=== PATIENT | female | born 1940 | race Caucasian/White ===

== ENCOUNTER 2016-11-28 14:32 | Outpatient (CLI) | payer MEDICARE, OTHER ==
--- NOTE | 2016-11-30 14:48 | DEXA Report ---
DEXA SCAN: 11/28/2016 CLINICAL INDICATION: Postmenopausal. TECHNIQUE: Dual energy x-ray absorptiometry (DXA) was performed on a Phloronol system. Regions measured are the AP spine, femoral neck, and, if needed, forearm. COMPARISON: None. In accordance with the International Society for Clinical Densitometry (ISCD) guidelines, data from previous exams may be reanalyzed using current recommendations and techniques. This is done to allow a more accurate basis for comparison with the current study. FINDINGS The data for the lumbar spine is as follows: REGION BMD (g/cm/cm) T-SCORE Z-SCORE L1 0.891 -2.0 0.1 L2 0.931 -2.2 -0.2 L3 1.065 -1.1 1.0 L4 1.013 -1.6 0.5 TOTAL 0.981 -1.7 0.4 NOTE: All evaluable vertebrae are used for classification. The data for the hip is as follows: REGION BMD (g/cm/cm) T-SCORE Z-SCORE Neck 0.812 -1.6 0.5 TOTAL 0.836 -1.4 0.6 NOTE: The femoral neck or total proximal femur, whichever is lowest, is used for classification. IMPRESSION: THE WHO CLASSIFICATION BASED ON THE INTERNATIONAL REFERENCE STANDARD IS OSTEOPENIA. THE FRACTURE RISK IS INCREASED. RECOMMENDATION: Patients with diagnosis of osteoporosis or osteopenia should have regular bone mineral density assessment. For those eligible for Medicare, routine testing is allowed once every 2 years. Testing frequency can be increased for patients who have rapidly progressing disease or for those who are receiving medical therapy to restore bone mass. COMMENT: World Health Organization (WHO) definitions for osteoporosis and osteopenia: NORMAL BMD: T-score at -1.0 or higher, fracture risk is low. OSTEOPENIA BMD: T-score between -1.0 and -2.5, fracture risk is increased. OSTEOPOROSIS BMD: T-score at -2.5 or lower, fracture risk high. National Osteoporosis Foundation recommends: 1. Obtain adequate dietary calcium (at least 1200 mg per day) and vitamin D (400 -800 international units per day). 2. Participate, as appropriate, in regular weightbearing and muscle- strengthening exercise. 3. Avoid tobacco use and reduce alcohol and caffeine intake. 4. For more detailed information see the website at www.NOF.org. MTDD
== END 2016-11-28 14:33 | disposition home or self-care (01) ==
LOC: DI 14:32
PROVIDERS: ATTEND Internal Medicine
DX: M85.89 Other specified disorders of bone density and structure, multiple sites (principal)
CPT/HCPCS: 77080

== ENCOUNTER 2016-11-28 14:34 | Outpatient (CLI) | payer MEDICARE, OTHER ==
--- NOTE | 2016-11-29 19:04 | Mammography Report ---
DIGITAL SCREENING MAMMOGRAM: 11/28/2016 CLINICAL INDICATION: A 75-year-old with history of bilateral implants, nulliparous patient for fern jay. COMPARISON: 09/2013, 12/2009. TECHNIQUE: Routine CC and MLO projections were obtained of the breasts as well as bilateral implant displaced views. FINDINGS: The breasts again demonstrate heterogeneously dense fibroglandular parenchyma bilaterally. Bilateral subglandular silicone implants are stable. No suspicious masses, clustered microcalcific ations, or regions of architectural distortion are identified. IMPRESSION: BENIGN FINDINGS. RECOMMENDATION: Routine annual screening unless otherwise clinically indicated. BI-RADS category 2, benign findings. STANDARD QUALIFYING STATEMENTS 1. This examination was reviewed with the aid of Computer-Aided Detection (CAD). 2. A negative or benign imaging report should not delay biopsy if clinically suspicious findings are present. Consider surgical consultation if warranted. More than 5% of cancers are not identified by i maging. 3. Dense breasts may obscure an underlying neoplasm. JOB #: [id number] EXT JOB #:[id number]
== END 2016-11-28 14:35 | disposition home or self-care (01) ==
LOC: DI 14:34
PROVIDERS: ATTEND Internal Medicine
DX: Z12.31 Encounter for screening mammogram for malignant neoplasm of breast (principal); Z98.82 Breast implant status
CPT/HCPCS: 77067

== ENCOUNTER 2017-03-23 13:38 | Outpatient (CLI) | payer MEDICARE, OTHER ==
--- NOTE | 2017-03-23 18:29 | XRAY Report ---
LEFT HIP AND PELVIS: 03/23/2017 CLINICAL INDICATION: Left hip discomfort. FINDINGS: Frontal view of the hips and pelvis and frogleg lateral view of the left hip demonstrate mild osteoarthritis. There is no evidence of acute fracture or dislocation. Surgical clips are noted in the pelvis. A bone island is seen in the left iliac crest, stable from CT of 11/07/2007. IMPRESSION: MILD OSTEOARTHRITIS. TD: 03/23/2017 18:27
== END 2017-03-23 13:39 | disposition home or self-care (01) ==
LOC: DI 13:38
PROVIDERS: ATTEND Internal Medicine
DX: M16.12 Unilateral primary osteoarthritis, left hip (principal)

== ENCOUNTER 2017-09-22 17:11 | Emergency (ER) | payer MEDICARE, OTHER ==
[2017-09-22 17:34] VITALS: BP 191/91
[2017-09-22] MEDS ORDERED: IBUPROFEN 600 MG TABLET PO STA (18:00)
--- NOTE | 2017-09-22 18:13 | ED Physician Documentation ---
PD HPI Fall - Stated complaint Stated Complaint: FALL OFF LADDER/RT SHOULDER PX - Chief complaint Chief Complaint: Ext Problem - History obtained from History obtained from: Patient - History of Present Illness Mechanism of injury: Slipped Fall distance: Less than 5ft Where injury occurred: Home Timing - onset: How many minutes ago (30) Injury(ies) location: Right Upper Extremity Worsens with: Movement, Palpation Similar symptoms before: Has not had sx before - Additional information Additional information: The patient is a 76-year-old female who fell about 2 feet off a ladder less than one hour prior to arrival, impacting her right shoulder on hard dirt. She is left-hand dominant. She denies any other injuries. Review of Systems Constitutional: denies: Fever Ears: denies: Tinnitus/ringing Nose: denies: Congestion Cardiac: denies: Chest pain / pressure Respiratory: denies: Dyspnea, Cough GI: denies: Abdominal Pain, Nausea, Vomiting : denies: Dysuria Skin: denies: Abrasion (s), Laceration (s) Musculoskeletal: reports: Joint pain (right shoulder.). 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 - Present Medications Home Medications: Ambulatory Orders Medication Instructions Recorded Confirmed Latanoprost 0.005% Ophth Drops 1 drops OPTH QPM 11/18/14 11/18/14 [Xalatan Ophth Drops] Multivitamin [Multi-Vitamin Daily] 1 each PO 11/18/14 11/18/14 - Allergies Allergies/Adverse Reactions: Allergies Allergy/AdvReac Type Severity Reaction Status Date / Time No Known Drug Allergies Allergy Verified 09/22/17 17:33 PD ED PE NORMAL - Vitals Vital signs reviewed: Yes (Initially hypertensive.) - General General: Alert and oriented X 3, Well developed/nourished - HEENT HEENT: Atraumatic - Neck Neck: No bony TTP, Other (Full cervical range of motion, without tenderness.) - Cardiac Cardiac: RRR - Respiratory Respiratory: No respiratory distress, Clear bilaterally, Other (No chest wall tenderness to palpation.) - Abdomen Abdomen: Soft, Non tender - Back Back: No spinal TTP - Derm Derm: No rash - Extremities Extremities: Other (There is tenderness to palpation of the right shoulder at the proximal humerus. She has decreased range of motion at the shoulder secondary to pain. There is no break in the integument. Distal neurovascular is intact. There is no tenderness to palpation along the clavicle, scapula, or the right elbow or forearm.) - Neuro Neuro: Alert and oriented X 3, No motor deficit, No sensory deficit Results - Vitals Vitals: Oxygen O2 Source Room air - Rads (name of study) right shoulder Radiology: Prelim report reviewed, EMP read contemporaneously, See rad report ( Comminuted proximal humeral fracture involving the surgical neck and greater tuberosity.) PD MEDICAL DECISION MAKING - ED course Complexity details: reviewed results, re-evaluated patient, considered differential, d/w patient, d/w family ED course: The patient's presentation is significant for right proximal humerus fracture caused by falling onto her right shoulder. No other injuries are identified on physical examination. Treatment in the emergency department included administration of ibuprofen 600 mg orally, and application of a right arm sling. I discussed with her the expected course of injury, symptomatic treatment and outpatient follow-up, as well as potentially worrisome signs or symptoms that should prompt reevaluation in the emergency department. - Sepsis Event Vital Signs: Oxygen O2 Source Room air Departure - Departure Disposition: 01 Home, Self Care Clinical Impression: Fracture of proximal humerus Qualifiers: Encounter type: initial encounter Fracture type: closed Fracture morphology: other fracture Fracture alignment: nondisplaced Laterality: right Qualified Code (s): S42.294A - Other nondisplaced fracture of upper end of right humerus, initial encounter for closed fracture Condition: Stable Instructions: ED Fx Shoulder Follow-Up: Abimbola Arriaza MD [Primary Care Provider] - [facility] [Provider Group] Comments: Wear the arm sling for comfort. Apply ice pack to your right shoulder intermittently for the next 3 days. You can use acetaminophen or ibuprofen as needed for discomfort. Follow up with your primary physician within 2 weeks. Call to schedule an appointment. Return to the emergency department if you develop markedly increasing pain, or otherwise worsening symptoms. Discharge Date/Time: 09/22/17 18:35
--- NOTE | 2017-09-22 18:19 | XRAY Report ---
Procedure Date: 09/22/2017 Accession Number: [id number] / [id number] Procedure: XR - Shoulder 3 View RT CPT Code: FULL RESULT: EXAM: RIGHT SHOULDER RADIOGRAPHY EXAM DATE: 09/22/2017 05:46 PM. CLINICAL HISTORY: Injury. COMPARISON: None. TECHNIQUE: 3 views. FINDINGS: Bones: Comminuted mildly displaced and impacted multipart fracture of the proximal humerus. There is a minimally impacted and angulated fracture through the surgical neck. Additional mildly displaced fracture through the greater tuberosity. Joints: No dislocation/subluxation at the acromioclavicular or glenohumeral joints. Mild osteophytic spurring at the acromioclavicular joint. Soft tissues: Visualized hemithorax is unremarkable. IMPRESSION: Comminuted proximal humeral fracture involving the surgical neck and greater tuberosity. RADIA
== END 2017-09-22 18:35 | disposition home or self-care (01) ==
LOC: ED 17:11
DX: S42.254A Nondisplaced fracture of greater tuberosity of right humerus, initial encounter for closed fracture (principal); W11.XXXA Fall on and from ladder, initial encounter; Y92.009 Unspecified place in unspecified non-institutional (private) residence as the place of occurrence of the external cause
CPT/HCPCS: 73030; 99282; 99283; A9270

== ENCOUNTER 2018-09-18 18:50 | Outpatient (CLI) | payer MEDICARE, OTHER ==
--- NOTE | 2018-09-18 20:16 | Ultrasound Report ---
Reason: R LEG PAIN, POPLITEAL SWELLING Procedure Date: 09/18/2018 Accession Number: [id number] / [id number] Procedure: US - Duplex Ext Veins Right CPT Code: FULL RESULT: EXAM: RIGHT LOWER EXTREMITY VENOUS ULTRASOUND EXAM DATE: 09/18/2018 07:26 PM. CLINICAL HISTORY: Right leg pain with popliteal swelling. COMPARISON: None. TECHNIQUE: Real-time sonographic vascular imaging was performed by the principal secretary through the lower extremity utilizing both color-flow and Doppler spectral analysis. Multiple passenger relations representative static images were saved for review. FINDINGS: Common Femoral Vein (CFV): Normal. CFV-GSV Junction: Normal. Profunda Femoral Vein (PFV): Normal. Femoral Vein (FV) Prox: Normal. Femoral Vein (FV) Mid: Normal. Femoral Vein (FV) Dist: Normal. Popliteal Vein: Normal. Posterior Tibial Veins: Normal. Peroneal Veins: Normal. Contralateral Side CFV: Normal. Other: Prepatellar fluid collection 3.7 x 0.7 x 1 cm. IMPRESSION: 1. No evidence for deep venous thrombosis. 2. Prepatellar fluid collection, likely bursal fluid. RADIA The call report notification system was initiated by Dr. Italo Hughes at 08:15 PM on 09/18/2018. ADDENDUM: 09/18/18 20:21 The above call report findings were discussed with Dr Abimbola Arriaza by Dr. Italo Hughes at 08:21 PM on 09/18/2018.
== END 2018-09-18 18:51 | disposition home or self-care (01) ==
LOC: DI 18:50
PROVIDERS: ATTEND Internal Medicine
DX: M79.604 Pain in right leg (principal); M71.21 Synovial cyst of popliteal space [Baker], right knee

== ENCOUNTER 2019-03-26 14:24 | Outpatient (CLI) | payer MEDICARE, OTHER ==
--- NOTE | 2019-03-26 15:03 | XRAY Report ---
Reason: COUGH Procedure Date: 03/26/2019 Accession Number: [id number] / [id number] Procedure: XR - Chest 2 View X-Ray CPT Code: 09519 Final Report FULL RESULT: EXAM: CHEST RADIOGRAPHY EXAM DATE: 03/26/2019 02:29 PM. CLINICAL HISTORY: COUGH. COMPARISON: None. TECHNIQUE: 2 views. FINDINGS: Lungs/Pleura: Left lower lobe infiltrate and small effusion. Right apical pleural thickening. Mediastinum: Heart and mediastinal contours are unremarkable. Other: Bilateral breast implants. IMPRESSION: Left lower lobe infiltrate and small effusion RADIA The call report notification system was initiated by Dr. Keiry Urrutia at 03:00 PM on 03/26/2019. The above call report findings were discussed with Dr Abimbola Arriaza by Dr. Keiry Urrutia at 03:02 PM on 03/26/2019.
== END 2019-03-26 14:25 | disposition home or self-care (01) ==
LOC: DI 14:24
PROVIDERS: ATTEND Internal Medicine
DX: R91.8 Other nonspecific abnormal finding of lung field (principal); J90 Pleural effusion, not elsewhere classified
CPT/HCPCS: 71046

== ENCOUNTER 2019-05-03 13:19 | Outpatient (CLI) | payer MEDICARE, OTHER ==
--- NOTE | 2019-05-03 15:47 | XRAY Report ---
Reason: COUGH Procedure Date: 05/03/2019 Accession Number: [id number] / [id number] Procedure: XR - Chest 2 View X-Ray CPT Code: 22590 Final Report FULL RESULT: EXAM: CHEST RADIOGRAPHY EXAM DATE: 05/03/2019 01:35 PM. CLINICAL HISTORY: Cough. COMPARISON: CHEST 2 VIEW 03/26/2019 2:29 PM. TECHNIQUE: 2 views. FINDINGS: Interval worsening of moderate volume of consolidation and pleural fluid at the left lung base. Right lung appears clear. Heart size upper limits of normal and stable. Moderately heavy capsular calcification of bilateral breast implants. IMPRESSION: Interval worsening of consolidation and pleural fluid left lung base. RADIA
== END 2019-05-03 13:20 | disposition home or self-care (01) ==
LOC: DI 13:19
PROVIDERS: ATTEND Internal Medicine
DX: R91.8 Other nonspecific abnormal finding of lung field (principal)
CPT/HCPCS: 71046

== ENCOUNTER 2019-05-13 10:54 | Outpatient (CLI) | payer MEDICARE, OTHER ==
[2019-05-13 11:29] LABS: CREATININE 0.7 mg/dL (0.4-1.0)
[2019-05-13] MEDS ORDERED: IOVERSOL 320 100 ML VIAL IVP ONE ×2 (11:39→14:57)
--- NOTE | 2019-05-13 13:34 | CT Report ---
Reason: PLUERAL EFFUSION, ABN FINDINGS Procedure Date: 05/13/2019 Accession Number: [id number] / [id number] Procedure: CT - CHEST W CPT Code: Final Report FULL RESULT: EXAM: CT CHEST EXAM DATE: 05/13/2019 12:28 PM. CLINICAL HISTORY: Pleural effusion. Abnormal chest radiograph. COMPARISONS: CHEST 2 VIEW 05/03/2019 1:24 PM CHEST 2 VIEW 03/26/2019 2:29 PM. TECHNIQUE: Routine helical CT imaging was performed through the chest. IV contrast: 80 cc of Optiray 320. Reconstructions: Coronal and sagittal. In accordance with CT protocol optimization, one or more of the following dose reduction techniques were utilized for this exam: automated exposure control, adjustment of mA and/or KV based on patient size, or use of iterative reconstructive technique. FINDINGS: Lungs/Pleura: Small to moderate sized left pleural effusion. There is an irregularly shaped mass within the anterior aspect of the left lower lobe and along the major fissure at the left lung. The overall size of the mass is approximately 12.6 cm superior to inferior by 3 cm AP by 2.8 cm medial to lateral. There is an approximately 1.9 x 2.3 x 0.6 cm focus of subpleural tissue at the posterior superior aspect of the left upper lobe. There is an approximately 2.1 x 0.8 x 0.7 cm focus of tissue at the posterior medial aspect of the left upper lobe which extends inferiorly into the major fissure of the left lung. No pneumothorax. Mild diffuse bronchiectasis. There is an approximately 5.4 x 2 x 1 cm area of pleural or subpleural soft tissue at the right lung apex. Mediastinum: Normal. No adenopathy or masses. The heart and great vessels are normal. Bones: Unremarkable. Visualized Abdomen: There is a calcification at the right upper abdominal quadrant which is partially imaged, and may represent a gallstone. Other: Bilateral breast implants are present which appear ruptured. Calcified bilateral breast implant capsules are present. IMPRESSION: 1. Irregularly-shaped, approximately 12.6 x 3 x 2.8 cm mass within the anterior aspect of the left lower lobe and extending along the major fissure of the left lung which is most concerning for a neoplasm. There were also small foci of subpleural soft tissue at the posterior superior aspect of left upper lobe and a small focus of tissue at the posterior medial aspect of the left upper lobe which extends inferiorly to the major fissure of the left lung which may also represent neoplasm. 2. Small to moderate-sized left toe fusion. 3. A 5.4 x 2 x 1 cm area of pleural or subpleural soft tissue at the right lung apex which may represent pleural thickening or parenchymal scar. Neoplasm cannot be totally excluded. Recommend follow-up imaging. 4. Bilateral breast implants which appear ruptured. Calcified bilateral breast implant capsules suggestive of capsular contracture. RADIA The call report notification system was initiated by Dr. Дмитрий Navarro at 01:28 PM on 05/13/2019. The above call report findings were discussed with Abimbola Arriaza by Dr. Дмитрий Navarro at 01:32 PM on 05/13/2019.
== END 2019-05-13 10:55 | disposition home or self-care (01) ==
LOC: DI 10:54
PROVIDERS: ATTEND Internal Medicine
DX: J90 Pleural effusion, not elsewhere classified (principal); R91.8 Other nonspecific abnormal finding of lung field; Z98.82 Breast implant status
CPT/HCPCS: 36415; 71260; 82565; Q9967

== ENCOUNTER 2019-06-04 13:46 | Outpatient (CLI) | payer MEDICARE, OTHER ==
[2019-06-04] MEDS ORDERED: GADOBUTROL 7.5 MMOL/7.5 ML VIAL ONE (14:06)
[2019-06-04] MEDS ORDERED: GADOBUTROL 7.5 MMOL/7.5 ML VIAL IVP ONE (14:48)
--- NOTE | 2019-06-04 19:48 | MRI Report ---
Reason: ADENOCA OF LEFT LOWER LUNG Procedure Date: 06/04/2019 Accession Number: [id number] / [id number] Procedure: MRI - Brain W/WO CPT Code: Final Report FULL RESULT: EXAM: MRI BRAIN WITHOUT AND WITH CONTRAST EXAM DATE: 06/04/2019 02:57 PM. CLINICAL HISTORY: Lung cancer, staging, evaluate for brain metastasis. COMPARISON: None. TECHNIQUE: Multiplanar, multisequence T1-weighted and fluid-sensitive MR sequences of the brain were performed before and after administration of intravenous contrast. Sequences optimized for routine evaluation. Other: None. IV Contrast: 5.5 mL Gadavist. FINDINGS: Conspicuous approximately 12 mm lesion of the medial right cerebral hemisphere is present in the region of the posterior right cingulate gyrus. Prominent associated hemosiderin staining. No restricted diffusion. At the upper margin of the lesion there is a curvilinear T1 hyperintensity precontrast. Posteriorly and inferiorly there does appear to be a 3.5 mm focus of nodular enhancement. Tissue volume loss with cystic encephalomalacia may be present. Possible minimal gliosis, but no evidence for vasogenic edema. No other evidence for intracranial hemorrhage or acute infarct. No other evidence of intracranial cystic or solid enhancing nodule or lesion. No hydrocephalus. Mild generalized age-related cerebral volume loss. Negligible white matter T2 hyperintense signal changes, probably from minimal chronic microangiopathy and aging. No evidence for major dural venous sinus thrombus. Previous bilateral lens extractions. No acute sinus or mastoid fluid opacity. No focal pathologic-appearing marrow signal changes in the skull or clivus. Severe hypertrophic degenerative facet arthropathy on the right at C1-C2. IMPRESSION: 1. Probably chronic hemorrhagic lesion in the region of the right posterior cingulate gyrus. Probable cystic encephalomalacia. Minimal enhancement. No accompanying edema. This lesion is nonspecific, but may represent sequelae of previous hemorrhage or hemorrhagic infarct. Chronic deformity associated with a cavernous malformation is less likely but conceivable. Findings are not typical of tumor metastasis but additional MRI follow-up to establish stability is suggested. 2. Mild generalized age-related changes without other evidence of acute intracranial abnormality or other suspicious enhancing intracranial lesion. RADIA
== END 2019-06-04 13:47 | disposition home or self-care (01) ==
LOC: DI 13:46
PROVIDERS: ATTEND Internal Medicine Hematology & Oncology
DX: C34.32 Malignant neoplasm of lower lobe, left bronchus or lung (principal); G93.9 Disorder of brain, unspecified
CPT/HCPCS: 70553; A9585

== ENCOUNTER 2019-08-28 12:18 | Outpatient (CLI) | payer MEDICARE, OTHER ==
[2019-08-28] MEDS ORDERED: IOVERSOL 320 100 ML VIAL IVP ONE ×2 (12:32→13:19)
--- NOTE | 2019-08-28 14:20 | CT Report ---
PROCEDURE: CHEST W INDICATIONS: ADENOCARCINOMA LT LUNG CONTRAST: IV CONTRAST: Optiray 320 ml: 90 PO CONTRAST: *NO PO CONTRAST TECHNIQUE: After the administration of intravenous contrast, 5 mm thick sections acquired from the pulmonary api mirza to the posterior costophrenic angles. 7 mm thick coronal MIP reformats were acquired. For radia tion dose reduction, the following was used: automated exposure control, adjustment of mA and/or kV according to patient size. COMPARISON: None. FINDINGS: Image quality: Excellent. Lungs and pleura: No acute air space opacities. There has been interval reduction in size of the ma sslike lesion immediately adjacent to the left lateral border of the left hilum, projecting inferiorl y with a maximal axial dimension in April of this year of 3.0 cm AP and also 3.0 cm transverse. Mild residual mass remains in this area, best seen centered on series 3 image 35 measuring 1.9 x 1.5 cm. T his appears to represent successful response to intervening therapy. No pleural effusions or pneumoth orax. Central and peripheral airways are patent and normal in caliber. Mediastinum: Heart size is normal. No pericardial effusion. No mediastinal or hilar adenopathy by size criteria. Thoracic aorta and central pulmonary arteries are normal in size. Esophagus is leroy l in caliber. No hiatal hernia. Bones and chest wall: No suspicious bony lesions. No vertebral body compression fractures. No axil campos or supraclavicular adenopathy by size criteria. Thyroid gland appears normal where well seen. B ilateral breast implants showed no meter changes records clerk time. Abdomen: Visualized upper abdominal solid organs appear normal. Upper abdominal bowel loops are nor mal in caliber. IMPRESSION: Significant improvement in a previously present large left lower lung mass, as discussed above. This has diminished from a maximal dimension of 3.0 cm previously 21.9 cm currently. Interval reduction in size of a simple appearing left pleural effusion from moderate in size to now small. Reviewed by: Beto Modi MD on 08/28/2019 2:18 PM PDT Approved by: Beto Modi MD on 08/28/2019 2:18 PM PDT Station ID: [id number]
== END 2019-08-28 12:19 | disposition home or self-care (01) ==
LOC: DI 12:18
PROVIDERS: ATTEND Internal Medicine Hematology & Oncology
DX: C34.92 Malignant neoplasm of unspecified part of left bronchus or lung (principal); J90 Pleural effusion, not elsewhere classified
CPT/HCPCS: 71260; Q9967

== ENCOUNTER 2019-11-25 11:02 | Outpatient (CLI) | payer MEDICARE, OTHER ==
[2019-11-25] MEDS ORDERED: IOVERSOL 320 100 ML VIAL IVP ONE ×2 (11:27→17:26)
[2019-11-25] MEDS ORDERED: IOVERSOL 320 50 ML VIAL ONE (11:27)
[2019-11-25] MEDS ORDERED: IOVERSOL 320 50 ML VIAL PO ONE (17:26)
[2019-11-25 17:35] LABS: ALBUMIN 4.3 g/dL (3.2-5.5); ALBUMIN/GLOBULIN RATIO 1.5 (1.0-2.2); CALCIUM 9.3 mg/dL (8.5-10.3); CREATININE 0.8 mg/dL (0.4-1.0); TOTAL PROTEIN 7.1 g/dL (6.7-8.2)
--- NOTE | 2019-11-25 18:12 | CT Report ---
PROCEDURE: CHEST W INDICATIONS: METASTATIC DISEASE EVAL, LUNG CANCER CONTRAST: IV CONTRAST: Optiray 320 ml: 100 PO CONTRAST: Optiray 320 ml50 TECHNIQUE: After the administration of intravenous contrast, 5 mm thick sections acquired from the pulmonary api mirza to the posterior costophrenic angles. 7 mm thick coronal MIP reformats were acquired. For radia tion dose reduction, the following was used: automated exposure control, adjustment of mA and/or kV according to patient size. COMPARISON: CT chest 08/28/2019, 05/13/2019. FINDINGS: Image quality: Excellent. Lungs and pleura: Multifocal nodular thickening along the left major fissure. Overall stable to slig htly decreased. -Left lower lobe nodular thickening along the major fissure measures 2.1 x 1.4 cm, (4/164), previousl y 2 x 1.4 cm on 08/28/2019 and more remotely 2.9 x 2.9 cm on 05/13/2019. -Additionally the nodular thickening at the more superior portions of the left major fissure demonstr ate continued decrease, (4/125). -Nodule in the inferior left lower lobe measures 1.4 x 1.1 cm, (4/243), previously 1.7 x 1.3 cm, prev iously approximately 2.8 x 2.6 cm. -Small subpleural nodules in the inferior left lung seen on 05/13/2019 are decreased. No acute air space opacities. Pleural apical scarring. Nearly resolved left pleural effusion. No pneu mothorax. Central and peripheral airways are patent and normal in caliber. Mediastinum: Heart size is normal. No pericardial effusion. No mediastinal or hilar adenopathy by size criteria. Thoracic aorta and central pulmonary arteries are normal in size. No central pulmona ry wasn't. Esophagus is normal in caliber. No hiatal hernia. Bones and chest wall: Bilateral implants, unchanged. No suspicious bony lesions. No vertebral body compression fractures. No axillary or supraclavicular adenopathy by size criteria. Small right axil campos lymph nodes are unchanged. Thyroid gland demonstrates a subcentimeter left thyroid nodule. Abdomen: Well-circumscribed hypodensity in the hepatic dome is unchanged and most likely represents a benign cyst. No adrenal nodule. Visualized upper abdominal solid organs appear normal. Upper abdom inal bowel loops are normal in caliber. IMPRESSION: 1. Multifocal left lung pulmonary nodules are stable to decreased in size. 2. No enlarged mediastinal or hilar adenopathy. 3. No aggressive appearing osseous lesion. 4. Nearly resolved left pleural effusion. Reviewed by: Chevy Baldwin MD on 11/25/2019 6:11 PM PDT Approved by: Chevy Baldwin MD on 11/25/2019 6:11 PM PDT Station ID: [id number]
--- NOTE | 2019-11-25 18:20 | CT Report ---
PROCEDURE: Abdomen/Pelvis W INDICATIONS: METASTATIC DISEASE EVAL, LUNG CANCER CONTRAST: IV CONTRAST: Optiray 320 ml: 100 PO CONTRAST: Optiray 320 ml50 TECHNIQUE: After the administration of IV and oral contrast, 5 mm thick sections acquired from the diaphragms to the symphysis. 5 mm thick coronal and sagittal reformats were acquired. For radiation dose reducti on, the following was used: automated exposure control, adjustment of mA and/or kV according to adin ent size. COMPARISON: Same day CT chest. CT chest 05/13/2019. Hip and pelvic radiographs 03/23/2017. FINDINGS: Image quality: Excellent. ABDOMEN: Lung bases: Cc separate dictated CT chest. Solid organs: Liver and spleen are normal in size. Well-circumscribed hepatic hypodensity in the dom e of the liver has the appearance of a benign cyst. Punctate hypodensity in the right peripheral dome also likely a cyst. Gallbladder is not significantly distended. A calcified gallstone measuring 1.1 cm. Biliary system is non dilated. Pancreas enhances normally. No adrenal nodules. Kidneys demons trate normal size and enhancement, without hydronephrosis. Peritoneum and bowel: Bowel loops demonstrate normal wall thickness and caliber. A few colonic diver ticuli. Prominent stool the colon. No free fluid or air. Nodes and vessels: No retroperitoneal or mesenteric adenopathy by size criteria. Aorta and inferior vena cava are normal in size. Miscellaneous: No ventral hernias. PELVIS: Genitourinary: Bladder is decompressed. Miscellaneous: No inguinal hernias or adenopathy. Bones: No aggressive appearing bony lesions. Small sclerotic focus in the right and left ilium and l eft sacrum. These most likely represent bone islands. Iliac wing sclerotic foci are unchanged since 2 018. L4-L5 posterior disc protrusion. DDD. No vertebral body compression fractures. IMPRESSION: 1. No metastatic disease identified below the diaphragm. 2. Sclerotic foci in the iliac bones are unchanged since 2018 and are consistent with bone islands. 3. No enlarged adenopathy. 4. Prominent stool the colon. If clinically indicated PET/CT may be helpful for further evaluation. Reviewed by: Chevy Baldwin MD on 11/25/2019 6:19 PM PDT Approved by: Chevy Baldwin MD on 11/25/2019 6:19 PM PDT Station ID: [id number]
== END 2019-11-25 11:03 | disposition home or self-care (01) ==
LOC: LAB 11:02
PROVIDERS: ATTEND Internal Medicine Hematology & Oncology
DX: C34.92 Malignant neoplasm of unspecified part of left bronchus or lung (principal); J90 Pleural effusion, not elsewhere classified
CPT/HCPCS: 36415; 71260; 74177; 80053; Q9967

== ENCOUNTER 2020-03-20 12:04 | Outpatient (CLI) | payer MEDICARE, OTHER ==
[2020-03-20] MEDS ORDERED: IOVERSOL 320 100 ML VIAL IVP ONE ×2 (13:07→15:00)
[2020-03-20 13:18] LABS: CREATININE 0.7 mg/dL (0.4-1.0)
--- NOTE | 2020-03-20 15:48 | CT Report ---
PROCEDURE: CHEST W INDICATIONS: LT LUNG CA CONTRAST: IV CONTRAST: Optiray 320 ml: 100 PO CONTRAST: *NO PO CONTRAST TECHNIQUE: After the administration of intravenous contrast, 5 mm thick sections acquired from the pulmonary api mirza to the posterior costophrenic angles. 7 mm thick coronal MIP reformats were acquired. For radia tion dose reduction, the following was used: automated exposure control, adjustment of mA and/or kV according to patient size. COMPARISON: 11/25/2019, 08/28/2019. FINDINGS: Image quality: Excellent. No pleural effusion identified. No pneumothorax. Ill-defined scarring and architectural distortion in volving the left lung which are grossly unchanged since 11/25/2019 For example left lower lobe spiculated nodule seen on image 173/4 measures 2.1 x 1.2 cm, previously 2 .1 x 1.4 cm. Additional left lung base nodule measures 1.0 x 1.3 cm, previously 1.4 x 1.1 cm. Ill-def ined subcentimeter nodularity in the right middle lobe is grossly unchanged. Diffuse peribronchial cuffing suggestive of nonspecific bronchitis and/or reactive airways disease. S cattered subsegmental scarring/atelectasis. No acute consolidation. Mediastinum: Heart size is normal. No pericardial effusion. No mediastinal or hilar adenopathy by size criteria. A sending thoracic aorta measures 3.7 cm diameter. Esophagus is normal in caliber. N o hiatal hernia. Bones and chest wall: Incidentally noted bilateral breast prostheses. No suspicious bony lesions. No vertebral body compression fractures. No axillary or supraclavicular adenopathy by size criteria. Thyroid gland negative. Abdomen: Visualized upper abdominal solid organs appear normal. Upper abdominal bowel loops are nor mal in caliber. IMPRESSION: Overall, grossly unchanged examination since 11/25/2019 as detailed above. Reviewed by: Nolberto Riley MD on 03/20/2020 3:47 PM PST Approved by: Nolberto Riley MD on 03/20/2020 3:47 PM PST Station ID: [id number]
== END 2020-03-20 12:05 | disposition home or self-care (01) ==
LOC: DI 12:04
PROVIDERS: ATTEND Internal Medicine Hematology & Oncology
DX: C34.92 Malignant neoplasm of unspecified part of left bronchus or lung (principal); C34.90 Malignant neoplasm of unspecified part of unspecified bronchus or lung
CPT/HCPCS: 36415; 71260; 82565; Q9967

== ENCOUNTER 2020-04-16 14:16 | Outpatient (CLI) | payer MEDICARE, OTHER ==
--- NOTE | 2020-04-16 15:49 | XRAY Report ---
PROCEDURE: Shoulder 3 View LT INDICATIONS: L SHOULDER PAIN TECHNIQUE: 3 views of the shoulder were acquired. COMPARISON: None. FINDINGS: Bones: No acute fractures or dislocations. No suspicious bony lesions. Visualized ribs appear inta ct. Soft tissues: No suspicious soft tissue calcifications. IMPRESSION: No acute osseous abnormality. If there is clinical concern or persistent symptoms, addit ional imaging such as repeat radiographs or advanced imaging (e.g. CT, MRI) may be helpful for furthe r evaluation. Reviewed by: Aldo Jewell MD on 04/16/2020 3:48 PM PST Approved by: Aldo Jewell MD on 04/16/2020 3:48 PM PST Station ID: [id number]
== END 2020-04-16 14:17 | disposition home or self-care (01) ==
LOC: DI 14:16
PROVIDERS: ATTEND Internal Medicine
DX: M25.512 Pain in left shoulder (principal)

== ENCOUNTER 2020-06-18 12:23 | Outpatient (CLI) | payer MEDICARE, OTHER ==
[2020-06-18] MEDS ORDERED: IOPAMIDOL-300 100 ML VIAL ONE (13:03)
[2020-06-18 13:20] LABS: CREATININE 0.8 mg/dL (0.4-1.0)
[2020-06-18] MEDS ORDERED: IOPAMIDOL-300 100 ML VIAL IVP ONE (13:43)
--- NOTE | 2020-06-18 16:24 | CT Report ---
PROCEDURE: CHEST W INDICATIONS: ADENOCARCINOMA OF LT LUNG CONTRAST: IV CONTRAST: Isovue 300 ml: 100 PO CONTRAST: *NO PO CONTRAST TECHNIQUE: After the administration of intravenous contrast, 5 mm thick sections acquired from the pulmonary api mirza to the posterior costophrenic angles. 7 mm thick coronal MIP reformats were acquired. For radia tion dose reduction, the following was used: automated exposure control, adjustment of mA and/or kV according to patient size. COMPARISON: None. FINDINGS: Image quality: Excellent. Lungs and pleura: No acute air space opacities in the lung parenchyma shows a pattern of centrilobul ar emphysema consistent with long-standing smoking history. No pleural effusions or pneumothorax. C entral and peripheral airways are patent and normal in caliber. At the left lower lobe posterolateral to the lower lung vasculature again noted is a ovoid radiodensi ty within the lung measuring up to 1.2 x 2.1 cm. This previously had been measured at the same size o n the comparison 03/20/2020. And very similar in size 11/25/2019. It currently is best seen on series 9 002, image 168. More inferiorly at the left lower lobe just above the diaphragm a second nodule had m easured 1.0 x 1.3 cm and currently measures 1.0 x 1.4 cm, not significantly changed. This currently i s best seen on 900 2/246. Mediastinum: Heart size is normal. No pericardial effusion. No mediastinal or hilar adenopathy by size criteria. Thoracic aorta and central pulmonary arteries are normal in size. Esophagus is leroy l in caliber. No hiatal hernia. Bones and chest wall: No suspicious bony lesions. No vertebral body compression fractures. No axil campos or supraclavicular adenopathy by size criteria. Thyroid gland appears normal where well seen. Bilateral breast implants are peripherally calcified and show no evidence of implant rupture. Abdomen: Visualized upper abdominal solid organs appear normal. Upper abdominal bowel loops are nor mal in caliber. Note is made of a moderate-sized densely calcified gallstone at the gallbladder neck , without evidence of acute cholecystitis or biliary obstruction. IMPRESSION: 1. Centrilobular emphysema and appearance of long-standing smoking history. 2 mildly spiculated left lower lobe lung masses are unchanged from prior imaging as discussed above, measuring 1.2 x 2.1 cm an d 1.0 x 1.4 cm, respectively. No new pulmonary nodule has developed. If clinically warranted nuclear medicine PET/CT scanning could be utilized to further assess these structures if that has not yet bee n obtained. No adenopathy or distant metastatic disease is associated. 2. Densely calcified moderate-sized gallstone at the gallbladder neck, which shows no evidence of sec ondary acute cholecystitis or adjacent biliary obstruction. Reviewed by: Beto Modi MD on 06/18/2020 4:23 PM PDT Approved by: Beto Modi MD on 06/18/2020 4:23 PM PDT Station ID: [id number]
== END 2020-06-18 12:24 | disposition home or self-care (01) ==
LOC: LAB 12:23
PROVIDERS: ATTEND Internal Medicine Hematology & Oncology
DX: C34.92 Malignant neoplasm of unspecified part of left bronchus or lung (principal); J43.2 Centrilobular emphysema; R91.8 Other nonspecific abnormal finding of lung field; K80.20 Calculus of gallbladder without cholecystitis without obstruction
CPT/HCPCS: 36415; 71260; 82565; Q9967

== ENCOUNTER 2020-10-26 12:11 | Outpatient (CLI) | payer MEDICARE, OTHER ==
[2020-10-26] MEDS ORDERED: IOPAMIDOL-300 100 ML VIAL ONE (12:46)
[2020-10-26 12:51] LABS: CREATININE 0.8 mg/dL (0.4-1.0)
[2020-10-26] MEDS ORDERED: IOPAMIDOL-300 100 ML VIAL IVP ONE (14:53)
--- NOTE | 2020-10-26 15:07 | CT Report ---
PROCEDURE: CHEST W INDICATIONS: ADENOCARCINOMA OF LEFT LUNG CONTRAST: IV CONTRAST: Isovue 300 ml: 100 PO CONTRAST: *NO PO CONTRAST TECHNIQUE: After the administration of intravenous contrast, images were acquired from the pulmonary apices to t he posterior costophrenic angles. Multiplanar MIP reformats were acquired. For radiation dose reduc tion, the following was used: automated exposure control, adjustment of mA and/or kV according to pa tient size. COMPARISON: CT chest 06/18/2020, 03/20/2020. FINDINGS: Image quality: Excellent. Lungs and pleura: Mild biapical pleural-parenchymal scarring. An ovoid nodule is again seen in the l eft lung along the major fissure measuring 2.1 x 1.2 cm (image 148 of series 4), which appears unchan ged in size when compared to the CT from 06/18/2020. More inferiorly in the left lower lobe just above the diaphragm there is a 1.0 x 1.3 cm nodule (227/4), which also does not appear significantly change d in size. No new pulmonary nodule. No acute airspace consolidation. No acute air space opacities. N o pleural effusions or pneumothorax. Central and peripheral airways are patent and normal in caliber . Mediastinum: Heart size is normal. No pericardial effusion. No mediastinal or hilar adenopathy by size criteria. Thoracic aorta and central pulmonary arteries are normal in size. Esophagus is leroy l in caliber. No hiatal hernia. Bones and chest wall: No suspicious bony lesions. There is a mild compression deformity of the L1 ve rtebral body that is new when compared to the prior CT from 06/18/2020. There is mild loss of vertebral body height measuring 10-20%. No axillary or supraclavicular adenopathy by size criteria. The thyro id is normal in size. Bilateral breast implants are redemonstrated with intracapsular rupture bilater ally, not significantly changed. No definite extracapsular rupture is seen. Abdomen: A calcification at the gallbladder neck does not appear significantly changed. Visualized u pper abdominal solid organs appear normal. Upper abdominal bowel loops are normal in caliber. IMPRESSION: 1. Previously seen left lower lung nodules do not appear significantly changed when compared to the CTs from 06/18/2020 or 03/20/2020. 2. Mild compression deformity of the L1 vertebral body is new when compared to the CT from 06/18/2020. 3. Cholelithiasis. Reviewed by: Aldo Jewell MD on 10/26/2020 3:05 PM PDT Approved by: Aldo Jewell MD on 10/26/2020 3:05 PM PDT Station ID: [id number]
== END 2020-10-26 12:12 | disposition home or self-care (01) ==
LOC: LAB 12:11
PROVIDERS: ATTEND Internal Medicine Hematology & Oncology
DX: C34.92 Malignant neoplasm of unspecified part of left bronchus or lung (principal); M53.86 Other specified dorsopathies, lumbar region; K80.20 Calculus of gallbladder without cholecystitis without obstruction
CPT/HCPCS: 36415; 71260; 82565; Q9967

== ENCOUNTER 2021-01-29 13:00 | Outpatient (CLI) | payer MEDICARE, OTHER ==
--- NOTE | 2021-01-29 14:26 | XRAY Report ---
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 COMPARISON: CT chest 10/26/2020. Chest radiograph 05/03/2019. FINDINGS: Surgical changes and devices: Bilateral breast implants are present.. Lungs and pleura: No pleural effusions or pneumothorax. Known left-sided pulmonary nodules are not w ell evaluated radiographically. No acute consolidation. Mediastinum: Mediastinal contours are normal. Heart size is normal. Bones and chest wall: No suspicious bony abnormalities. Soft tissues appear unremarkable. IMPRESSION: No acute cardiopulmonary abnormality. Known left-sided pulmonary nodules are not well-vi sualized radiographically. Reviewed by: Aldo Jewell MD on 01/29/2021 2:25 PM PST Approved by: Aldo Jewell MD on 01/29/2021 2:25 PM PST Station ID: [id number]
== END 2021-01-29 13:01 | disposition home or self-care (01) ==
LOC: DI 13:00
PROVIDERS: ATTEND Internal Medicine Hematology & Oncology
DX: C34.92 Malignant neoplasm of unspecified part of left bronchus or lung (principal)

== ENCOUNTER 2021-04-28 12:10 | Outpatient (CLI) | payer MEDICARE, OTHER ==
[2021-04-28 12:32] LABS: BASOPHILS % (AUTO) 0.8 %; EOSINOPHILS # (AUTO) 0.1 10^3/uL (0.0-0.7); EOSINOPHILS % (AUTO) 3.1 %; HCT - HEMATOCRIT 41.9 % (37.0-47.0); HGB - HEMOGLOBIN 13.9 g/dL (12.0-16.0); LYMPHOCYTES # (AUTO) 0.9 10^3/uL (1.5-3.5); LYMPHOCYTES % (AUTO) 24.9 %; MEAN CORPUSCULAR HEMOGLOBIN 30.2 pg (27.0-31.0); MEAN CORPUSCULAR HGB CONC 33.2 g/dL (32.0-36.0); MEAN CORPUSCULAR VOLUME 91.1 fL (81.0-99.0); MEAN PLATELET VOLUME 9.8 fL (7.9-10.8); MONOCYTES # (AUTO) 0.6 10^3/uL (0.0-1.0); MONOCYTES % (AUTO) 15.4 %; NEUTROPHILS % (AUTO) 55.8 %; PLT - PLATELET COUNT 178 10^3/uL (130-450); RED CELL DISTRIBUTION WIDTH 14.6 % (12.0-15.0); WHITE BLOOD COUNT 3.6 x10^3/uL (4.8-10.8)
[2021-04-28] MEDS ORDERED: IOVERSOL 320 50 ML VIAL ONE (12:32)
[2021-04-28] MEDS ORDERED: IOVERSOL 320 100 ML VIAL IVP ONE ×2 (12:32→13:44)
[2021-04-28 12:41] LABS: ALBUMIN 4.5 g/dL (3.2-5.5); BILIRUBIN,TOTAL 0.9 mg/dL (0.2-1.0); CALCIUM 9.5 mg/dL (8.5-10.3); CREATININE 0.8 mg/dL (0.4-1.0); POTASSIUM 3.8 mmol/L (3.5-5.0); TOTAL PROTEIN 6.8 g/dL (6.7-8.2)
[2021-04-28] MEDS ORDERED: IOVERSOL 320 50 ML VIAL PO ONE (13:43)
--- NOTE | 2021-04-28 17:07 | CT Report ---
PROCEDURE: Abdomen/Pelvis W INDICATIONS: LUNG CA CONTRAST: IV CONTRAST: Optiray 320 ml: 90 PO CONTRAST: Optiray 320 ml50 TECHNIQUE: After the administration of oral and intravenous contrast, 5 mm thick sections acquired from the diap hragms to the symphysis. 5 mm thick coronal and sagittal reformats were acquired. For radiation dos e reduction, the following was used: automated exposure control, adjustment of mA and/or kV accordin g to patient size. COMPARISON: CT abdomen and pelvis dated 11/25/2019, CT chest from today FINDINGS: Image quality: Excellent. ABDOMEN: Lung bases: Nodularity in the inferior left major fissure is stable compared to November,. Heart size is normal. Bilateral peripherally calcified breast implants. Solid organs: Liver and spleen are normal in size and enhancement. Gallbladder is again noted to co ntain a calcified gallstone. Biliary system is non dilated. Pancreas enhances normally. No adrenal nodules. Kidneys demonstrate normal size and enhancement, without hydronephrosis. Peritoneum and bowel: Bowel loops demonstrate normal wall thickness and caliber. No free fluid or a ir. Nodes and vessels: No retroperitoneal or mesenteric adenopathy by size criteria. Aorta and inferior vena cava are normal in size. Miscellaneous: No ventral hernias. PELVIS: Genitourinary: Bladder wall thickness is normal. Uterus is surgically absent. Miscellaneous: No inguinal hernias or adenopathy. Bones: No suspicious bony lesions. No acute vertebral body compression fractures. Chronic mild L1 c ompression. Lumbar degenerative change. IMPRESSION: 1. No evidence of metastatic disease in the abdomen and pelvis. 2. Cholelithiasis. 3. Old L1 compression fracture. Comment: Please refer to the separate report on the chest CT findings from the same date. Reviewed by: Sergio Vinson MD on 04/28/2021 5:05 PM PDT Approved by: Sergio Vinson MD on 04/28/2021 5:05 PM PDT Station ID: [id number]
--- NOTE | 2021-04-28 17:16 | CT Report ---
PROCEDURE: CHEST W INDICATIONS: LUNG CA CONTRAST: IV CONTRAST: Optiray 320 ml: 90 PO CONTRAST: Optiray 320 ml50 TECHNIQUE: After the administration of intravenous contrast, 1 mm axial images were acquired from the pulmonary apices through the posterior costophrenic angles. Axial 5 mm soft tissue kernel reconstructions were performed as well as 8 mm axial MIP and coronal and sagittal 5 mm reformations. For radiation dose reduction, the following was used: automated exposure control, adjustment of mA and/or kV according to patient size. COMPARISON: None. FINDINGS: Image quality: Excellent. Lungs and pleura: Nodularity and scarring in the region of the left major fissure appears to possibly be minimally increased in size. On previous image 148/4, by my measurements, it measured approximate ly 1.9 x 1.1 cm. On current image 160/3, it measures approximately 2.2 x 1.3 cm. More inferiorly, nod ularity in the left lung base, just above the diaphragm, does not appear significantly changed in siz e. No acute air space opacities. No pleural effusions or pneumothorax. Central and peripheral airwa ys are patent and normal in caliber. Mediastinum: Heart size is normal. No pericardial effusion. No mediastinal or hilar adenopathy by size criteria. Thoracic aorta and central pulmonary arteries are normal in size. Esophagus is leroy l in caliber. No hiatal hernia. Bones and chest wall: No suspicious bony lesions. No vertebral body compression fractures. No axil campos or supraclavicular adenopathy by size criteria. The thyroid is normal in size and there are no incidental findings.. Bilateral peripherally calcified breast implants. Abdomen: Visualized upper abdominal solid organs appear normal. Upper abdominal bowel loops are nor mal in caliber. IMPRESSION: Question of slight interval increase in size of nodularity along the left major fissure. This may pot entially represent local progressive disease. Comment: PET CT may potentially be helpful. CLINICAL RECOMMENDATION STATEMENTS: In patients <35 years with an ITN detected on CT, MRI, or extrathyroidal ultrasound, the Committee re commends further evaluation with dedicated thyroid ultrasound if the nodule is "e1 cm and has no susp icious imaging features, and if the patient has normal life expectancy. In patients "e35 years with an ITN detected on CT, MRI, or extrathyroidal ultrasound, the Committee r ecommends further evaluation with dedicated thyroid ultrasound if the nodule is "e1.5 cm and has no s uspicious imaging features, and if the patient has normal life expectancy. (ACR, 2014) Reviewed by: Sergio Vinson MD on 04/28/2021 5:15 PM PDT Approved by: Sergio Vinson MD on 04/28/2021 5:15 PM PDT Station ID: [id number]
== END 2021-04-28 12:11 | disposition home or self-care (01) ==
LOC: DI 12:10
PROVIDERS: ATTEND Internal Medicine Hematology & Oncology
DX: C34.92 Malignant neoplasm of unspecified part of left bronchus or lung (principal); R91.8 Other nonspecific abnormal finding of lung field
CPT/HCPCS: 36415; 71260; 74177; 80053; 82378; 85025; Q9967

== ENCOUNTER 2021-08-04 13:38 | Outpatient (CLI) | payer MEDICARE, OTHER ==
--- NOTE | 2021-08-04 16:43 | XRAY Report ---
PROCEDURE: Chest 2 View X-Ray INDICATIONS: EGFR RELATED LUNG CA TECHNIQUE: 2 view(s) of the chest. COMPARISON: CT chest 04/28/2021 FINDINGS: Surgical changes and devices: Bilateral breast implants Lungs and pleura: No pleural effusions or pneumothorax. Lungs are clear. Mediastinum: Mediastinal contours are normal. Heart size is normal. Bones and chest wall: No suspicious bony abnormalities. Soft tissues appear unremarkable. IMPRESSION: No disc bulge, spinal stenosis or foraminal narrowing. Reviewed by: Adriana Griffin MD on 08/04/2021 4:42 PM PDT Approved by: Adriana Griffin MD on 08/04/2021 4:42 PM PDT Station ID: [id number]
== END 2021-08-04 13:39 | disposition home or self-care (01) ==
LOC: DI 13:38
PROVIDERS: ATTEND Internal Medicine Hematology & Oncology
DX: C34.90 Malignant neoplasm of unspecified part of unspecified bronchus or lung (principal)
CPT/HCPCS: 36415; 82378; 85025

== ENCOUNTER 2021-08-04 13:44 | Outpatient (CLI) | payer MEDICARE, OTHER ==
[2021-08-04 14:01] LABS: BASOPHILS % (AUTO) 0.5 %; EOSINOPHILS # (AUTO) 0.1 10^3/uL (0.0-0.7); EOSINOPHILS % (AUTO) 1.7 %; HCT - HEMATOCRIT 41.4 % (37.0-47.0); HGB - HEMOGLOBIN 13.6 g/dL (12.0-16.0); LYMPHOCYTES # (AUTO) 1.2 10^3/uL (1.5-3.5); LYMPHOCYTES % (AUTO) 28.6 %; MEAN CORPUSCULAR HGB CONC 32.9 g/dL (32.0-36.0); MEAN CORPUSCULAR VOLUME 91.2 fL (81.0-99.0); MEAN PLATELET VOLUME 9.5 fL (7.9-10.8); MONOCYTES # (AUTO) 0.6 10^3/uL (0.0-1.0); MONOCYTES % (AUTO) 14.9 %; NEUTROPHILS # (AUTO) 2.2 10^3/uL (1.5-6.6); NEUTROPHILS % (AUTO) 54.3 %; PLT - PLATELET COUNT 185 10^3/uL (130-450); RED BLOOD COUNT 4.54 10^6/uL (4.20-5.40); RED CELL DISTRIBUTION WIDTH 14.7 % (12.0-15.0); WHITE BLOOD COUNT 4.1 x10^3/uL (4.8-10.8)
== END 2021-08-04 13:45 | disposition home or self-care (01) ==
LOC: LAB 13:44
PROVIDERS: ATTEND Internal Medicine Hematology & Oncology
DX: C34.90 Malignant neoplasm of unspecified part of unspecified bronchus or lung (principal)
CPT/HCPCS: 36415; 82378; 85025

== ENCOUNTER 2021-08-18 08:00 | Outpatient (CLI) | payer MEDICARE, OTHER ==
[2021-08-18 16:26] LABS: BILIRUBIN,URINE NEGATIVE (NEGATIVE); GLUCOSE, URINE (UA) NEGATIVE (NEGATIVE); KETONES,URINE (UA) NEGATIVE (NEGATIVE); LEUKOCYTE ESTERASE, URINE NEGATIVE (NEGATIVE); NITRITE,URINE NEGATIVE (NEGATIVE); OCCULT BLOOD,URINE NEGATIVE (NEGATIVE); PROTEIN,URINE NEGATIVE (NEGATIVE); UROBILINOGEN,URINE 0.2 (NORMAL) E.U./dL (NORMAL)
[2021-08-18 16:28] LABS: CLARITY,URINE CLEAR (CLEAR)
[2021-08-18 16:42] LABS: BACTERIA,URINE None Seen /HPF (None Seen); RBC,URINE 0-5 /HPF (0-5); SQUAMOUS EPITHELIAL CELL,UR RARE Squamous (<= Few); WBC,URINE 0-3 /HPF (0-5)
== END 2021-08-18 23:59 | disposition home or self-care (01) ==
LOC: LAB.R 08:00
PROVIDERS: ATTEND Internal Medicine
DX: R05.9 Cough, unspecified (principal); R53.83 Other fatigue; R29.898 Other symptoms and signs involving the musculoskeletal system
CPT/HCPCS: 81001; 87086

== ENCOUNTER 2021-11-12 13:42 | Outpatient (CLI) | payer MEDICARE, OTHER ==
[2021-11-12 14:02] LABS: BASOPHILS % (AUTO) 0.7 %; EOSINOPHILS # (AUTO) 0.1 10^3/uL (0.0-0.7); EOSINOPHILS % (AUTO) 2.1 %; HCT - HEMATOCRIT 42.8 % (37.0-47.0); HGB - HEMOGLOBIN 14.3 g/dL (12.0-16.0); LYMPHOCYTES # (AUTO) 1.1 10^3/uL (1.5-3.5); LYMPHOCYTES % (AUTO) 18.8 %; MEAN CORPUSCULAR HEMOGLOBIN 30.3 pg (27.0-31.0); MEAN CORPUSCULAR HGB CONC 33.4 g/dL (32.0-36.0); MEAN CORPUSCULAR VOLUME 90.7 fL (81.0-99.0); MONOCYTES # (AUTO) 0.9 10^3/uL (0.0-1.0); NEUTROPHILS # (AUTO) 3.6 10^3/uL (1.5-6.6); NEUTROPHILS % (AUTO) 63.2 %; PLT - PLATELET COUNT 220 10^3/uL (130-450); RED BLOOD COUNT 4.72 10^6/uL (4.20-5.40); RED CELL DISTRIBUTION WIDTH 14.6 % (12.0-15.0); WHITE BLOOD COUNT 5.7 x10^3/uL (4.8-10.8)
[2021-11-12 14:10] LABS: ALBUMIN 4.3 g/dL (3.2-5.5); ALBUMIN/GLOBULIN RATIO 1.5 (1.0-2.2); BILIRUBIN,TOTAL 1.1 mg/dL (0.2-1.0); CALCIUM 9.7 mg/dL (8.5-10.3); CREATININE 0.8 mg/dL (0.4-1.0); POTASSIUM 3.6 mmol/L (3.5-5.0); TOTAL PROTEIN 7.1 g/dL (6.7-8.2)
--- NOTE | 2021-11-12 15:57 | CT Report ---
PROCEDURE: CHEST W INDICATIONS: LUNG CA CONTRAST: IV CONTRAST: Optiray 320 ml: 100 PO CONTRAST: *NO PO CONTRAST TECHNIQUE: After the administration of intravenous contrast, 1 mm axial images were acquired from the pulmonary apices through the posterior costophrenic angles. Axial 5 mm soft tissue kernel reconstructions were performed as well as 8 mm axial MIP and coronal and sagittal 5 mm reformations. For radiation dose reduction, the following was used: automated exposure control, adjustment of mA and/or kV according to patient size. COMPARISON: CT chest 04/28/2021 FINDINGS: Image quality: Excellent. Lungs and pleura: Previously identified left lower lobe mass has increased in size currently measurin g 2.4 x 2.1 cm compared to 1.8 x 1.7 cm. There is been interval development of a mild to moderate rig ht pleural effusion. In addition, marked left lower lobe pleural thickening has developed since prior exam. There is no visualized endobronchial lesion. Mediastinum: Heart size is normal. No pericardial effusion. No mediastinal or hilar adenopathy by size criteria. Thoracic aorta and central pulmonary arteries are normal in size. Esophagus is leroy l in caliber. No hiatal hernia. Bones and chest wall: No suspicious bony lesions. No vertebral body compression fractures. No axil capmos or supraclavicular adenopathy by size criteria. The thyroid is normal in size and there are no incidental findings.. Bilateral breast present. Abdomen: Visualized upper abdominal solid organs appear normal. Upper abdominal bowel loops are nor mal in caliber. IMPRESSION: Enlarged left lower lobe mass consistent with prior history of malignancy. In addition, there has bee n development of increased left pleural thickening as well as left effusion. Findings are concerning for disease progression. No adenopathy. CLINICAL RECOMMENDATION STATEMENTS: In patients <35 years with an ITN detected on CT, MRI, or extrathyroidal ultrasound, the Committee re commends further evaluation with dedicated thyroid ultrasound if the nodule is "e1 cm and has no susp icious imaging features, and if the patient has normal life expectancy. In patients "e35 years with an ITN detected on CT, MRI, or extrathyroidal ultrasound, the Committee r ecommends further evaluation with dedicated thyroid ultrasound if the nodule is "e1.5 cm and has no s uspicious imaging features, and if the patient has normal life expectancy. (ACR, 2014) Reviewed by: Adriana Griffin MD on 11/12/2021 3:56 PM PDT Approved by: Adriana Griffin MD on 11/12/2021 3:56 PM PDT Station ID: [id number]
== END 2021-11-12 13:43 | disposition home or self-care (01) ==
LOC: DI 13:42
PROVIDERS: ATTEND Internal Medicine Hematology & Oncology
DX: C34.92 Malignant neoplasm of unspecified part of left bronchus or lung (principal); C34.90 Malignant neoplasm of unspecified part of unspecified bronchus or lung; J90 Pleural effusion, not elsewhere classified; J92.9 Pleural plaque without asbestos
CPT/HCPCS: 36415; 71260; 80053; 82378; 85025; Q9967

== ENCOUNTER 2021-12-04 00:28 | Outpatient (CLI) | payer MEDICARE, OTHER | END 2021-12-04 00:29 | disposition EMS.NT | LOC: EMS 00:28 | DX: I10 Essential (primary) hypertension (principal) ==

== ENCOUNTER 2021-12-15 14:01 | Outpatient (CLI) | payer MEDICARE, OTHER ==
--- NOTE | 2021-12-15 15:38 | XRAY Report ---
PROCEDURE: Chest 2 View X-Ray INDICATIONS: COUGH TECHNIQUE: PA and lateral views of the chest. COMPARISON: Chest CT 11/12/2021. FINDINGS: Moderate to large left pleural effusion is seen with atelectasis of the left lung base. The right lalo g is clear. No pneumothorax. Cardiomediastinal silhouette is partially obscured by the adjacent effus ion, but appears to be within normal limits. Bilateral breast implants are noted. Age-related degener ative changes are seen in the spine. IMPRESSION: Moderate to large left pleural effusion has increased in size when compared to the CT from 11/12/2021. Reviewed by: Aldo Jewell MD on 12/15/2021 3:36 PM PDT Approved by: Aldo Jewell MD on 12/15/2021 3:36 PM PDT Station ID: [id number]
== END 2021-12-15 14:02 | disposition home or self-care (01) ==
LOC: DI.N 14:01
PROVIDERS: ATTEND Nurse Practitioner Adult Health
DX: J90 Pleural effusion, not elsewhere classified (principal)

== ENCOUNTER 2021-12-20 11:36 | Outpatient (CLI) | payer MEDICARE, OTHER ==
[2021-12-20 13:05] LABS: CALCIUM 9.5 mg/dL (8.5-10.3); CREATININE 0.8 mg/dL (0.4-1.0); POTASSIUM 3.5 mmol/L (3.5-5.0)
[2021-12-20 13:13] LABS: PT - PROTHROMBIN TIME 10.9 secs (9.9-12.6)
[2021-12-20 13:20] LABS: PARTIAL THROMBOPLASTIN TIME 26.8 secs (24.9-33.3)
[2021-12-20] MEDS ORDERED: lidocaine 1% 20 ML MDV ONE (13:28)
--- NOTE | 2021-12-20 14:46 | XRAY Report ---
PROCEDURE: Post Thoracentesis 1V CXR INDICATIONS: POST THORACENTESIS TECHNIQUE: One view of the chest was acquired. COMPARISON: 12/15/2021. FINDINGS: Surgical changes and devices: None. Lungs and pleura: There has been significant improvement in the patient's left-sided pleural effusio n status post thoracentesis. I see no evidence for pneumothorax. Heart and mediastinal contours appea r within normal limits. Mild pulmonary venous congestion is present. No acute osseous abnormalities i dentified. There is [id number] patchy left lower lobe atelectasis/consolidation present. IMPRESSION: 1. Marked improvement in the size of the patient's left-sided pleural effusion without evidence for p neumothorax status post thoracentesis. 2. Patchy left lower lobe atelectasis/consolidation. 3. Mild pulmonary venous congestion. Reviewed by: Hansel Ruffin MD on 12/20/2021 2:45 PM PST Approved by: Hansel Ruffin MD on 12/20/2021 2:45 PM PST Station ID: [id number]
[2021-12-20] MEDS ORDERED: lidocaine 1% 20 ML MDV SUBQ ONE (15:27)
--- NOTE | 2021-12-20 15:59 | Ultrasound Report ---
PROCEDURE: Thoracentesis Puncture INDICATIONS: PLEURAL EFFUSION TECHNIQUE: The indications, alternatives, benefits, risks, and complications of the procedure were explained to the patient. Written informed consent was obtained and placed in the chart. The chest was examined sonographically, and an appropriate site was chosen for thoracentesis. The skin was prepared and ridge ped in the usual sterile fashion, and 1% lidocaine was infiltrated from the skin down through the ple ural surface. A 19-gauge catheter-covered needle was then introduced into the pleural space, the cat heter was advanced and the needle was withdrawn, and thereafter pleural fluid was aspirated. The cat heter was then removed and a dressing was applied. COMPARISON: None. FINDINGS: Access site: Left hemithorax. Needle: One-Step centesis catheter with introducer needle. Fluid volume and description: 1000 cc clear straw-colored fluid Fluid sent for diagnostic testin cc Medications: 1% lidocaine for local anaesthesia. Complications: Post procedural chest radiograph is pending to assess for pneumothorax. Of note after the examination patient complained of chest pain at the end of the procedure and was st arted on 2 L of oxygen per minute. Post thoracentesis radiograph shows no evidence for pneumothorax a nd significant decrease in the size of the pleural effusion. Given the patient's chest pain and press ure patient was transferred to the emergency room for further evaluation. IMPRESSION: Successful left-sided ultrasound-guided thoracentesis. Reviewed by: Hansel Ruffin MD on 12/20/2021 3:58 PM PST Approved by: Hansel Ruffin MD on 12/20/2021 3:58 PM PST Station ID: [id number]
== END 2021-12-20 11:37 | disposition home or self-care (01) ==
LOC: DI 11:36
PROVIDERS: ATTEND Nurse Practitioner Adult Health
DX: C34.90 Malignant neoplasm of unspecified part of unspecified bronchus or lung (principal); J91.0 Malignant pleural effusion; R07.9 Chest pain, unspecified; Z79.899 Other long term (current) drug therapy
CPT/HCPCS: 32555; 36415; 80048; 85049; 85610; 85730

== ENCOUNTER 2021-12-20 14:33 | Inpatient (IN) | payer MEDICARE, OTHER ==
--- NOTE | 2021-12-20 15:00 | ED Physician Documentation ---
History of Present Illness - Stated complaint Stated Complaint: CHEST PX POST OP - Chief complaint Chief Complaint: Cardiac - Additonal information Additional information: 81-year-old female checks into the emergency department for evaluation of left- sided chest pain. She did undergo a left-sided thoracentesis just about an hour ago for a large left-sided pleural effusion in the setting of lung cancer. She is not planning on pursuing chemotherapy and has started to be evaluated by palliative care. She reports that she was told she would have some chest pain though did not expect quite this much. With no treatment she reports the pain is subsiding. She is got no fevers. She presents well-appearing without hypoxia. This was a therapeutic thoracentesis secondary to increasing dyspnea Review of Systems Constitutional: denies: Fever, Chills Cardiac: reports: Chest pain / pressure. denies: Palpitations Respiratory: reports: Dyspnea. 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 - Present Medications Home Medications: Ambulatory Orders Medication Instructions Recorded Confirmed Latanoprost 0.005% Ophth Drops 1 drops OPTH QPM 11/18/14 11/18/14 [Xalatan Ophth Drops] Multivitamin [Multi-Vitamin Daily] 1 each PO 11/18/14 11/18/14 - Allergies Allergies/Adverse Reactions: Allergies Allergy/AdvReac Type Severity Reaction Status Date / Time No Known Drug Allergies Allergy Verified 09/22/17 17:33 - Social History Does the pt smoke?: No Smoking Status: Never smoker Does the pt drink ETOH?: No Does the pt have substance abuse?: No - Immunizations Immunizations are current?: Yes - POLST Patient has POLST: No PD ED PE NORMAL - General General: Alert and oriented X 3, No acute distress, Well developed/nourished - HEENT HEENT: Atraumatic, Moist mucous membranes - Cardiac Cardiac: RRR, No murmur - Respiratory Respiratory: No respiratory distress. No: Clear bilaterally (Diminished breath sounds in the left lower lobe of the lung. Mild crackles left side. Room air saturations 98%. Clear right-sided lung sounds) - Abdomen Abdomen: Normal bowel sounds, Soft, Non tender - Back Back: No CVA TTP, No spinal TTP - Derm Derm: Normal color, Warm and dry - Extremities Extremities: No deformity, No tenderness to palpate, Normal ROM s pain - Neuro Neuro: Alert and oriented X 3, billing assistant 2-12 intact Eye Opening: Spontaneous Motor: Obeys Commands Verbal: Oriented GCS Score: 15 Results - Vitals Vitals: Vital Signs - 24 hr 12/20/21 12/20/21 12/20/21 14:38 14:40 15:10 Temperature 36.7 C Heart Rate 76 76 73 Respiratory 16 22 Rate Blood Pressure 147/83 H 155/90 H O2 Saturation 98 97 96 If not protocol : Oxygen Flow, liters/minute 12/20/21 12/20/21 12/20/21 16:30 17:00 18:00 Temperature Heart Rate 83 88 77 Respiratory 14 16 14 Rate Blood Pressure O2 Saturation 97 100 100 If not protocol : Oxygen Flow, liters/minute 12/20/21 12/20/21 12/20/21 18:47 19:25 20:18 Temperature 36.7 C Heart Rate 77 84 78 Respiratory 14 17 16 Rate Blood Pressure 155/90 H 168/92 H 145/79 H O2 Saturation 100 99 99 If not protocol : Oxygen Flow, liters/minute 12/20/21 21:14 Temperature 37.2 C Heart Rate 73 Respiratory 14 Rate Blood Pressure 135/72 H O2 Saturation 100 If not protocol 3 : Oxygen Flow, liters/minute Oxygen O2 Source Nasal cannula - EKG (time done) 1445 Rate: Rate (enter#) (72) Rhythm: NSR Eagle: Normal Intervals: Normal CA. No: Prolonged QT QRS: Low voltage Ischemia: Non specific changes Compare to prior EKG: Unchanged from prior EKG Computer interpretation: Agree with computer - Labs Labs: Laboratory Tests 12/20/21 12/20/21 12/20/21 15:03 15:03 15:03 WBC 5.1 RBC 4.63 Hgb 13.5 Hct 41.0 MCV 88.6 MCH 29.2 MCHC 32.9 RDW 14.9 Plt Count 195 MPV 10.8 Neut # (Auto) 3.3 Lymph # (Auto) 1.0 L Clayton # (Auto) 0.7 Eos # (Auto) 0.0 Baso # (Auto) 0.0 Absolute Nucleated RBC 0.00 Nucleated RBC % 0.0 Sodium 123 L Potassium 3.1 L Chloride 91 L Carbon Dioxide 26 Anion Gap 6.0 BUN 16 Creatinine 0.7 Estimated GFR (MDRD) 80 L Glucose 110 H Calcium 9.2 Troponin I High Sens 8.0 SARS-CoV-2 (PCR) 12/20/21 20:10 WBC RBC Hgb Hct MCV MCH MCHC RDW Plt Count MPV Neut # (Auto) Lymph # (Auto) Clayton # (Auto) Eos # (Auto) Baso # (Auto) Absolute Nucleated RBC Nucleated RBC % Sodium Potassium Chloride Carbon Dioxide Anion Gap BUN Creatinine Estimated GFR (MDRD) Glucose Calcium Troponin I High Sens SARS-CoV-2 (PCR) NOT DETECTED - Rads (name of study) cxr Radiology: Final report received (Interval development of small to moderate sized left pneumothorax.) PD MEDICAL DECISION MAKING - ED course Complexity details: reviewed results, re-evaluated patient, considered differential, d/w patient, d/w family ED course: 81-year-old female Presents to the emergency department for severe chest pain after a therapeutic left-sided thoracentesis. She does have a history of lung cancer for which she is taking oral chemotherapy. She is managed by Dr. Saunders through [facility] oncology clinics. Over the last few months she has developed a pleural effusion that become progressively more symptomatic therefore she had an elective left-sided thoracentesis. On presentation to the emergency department she is alert and well-appearing. She does have some minimal crackles on the left side but no hypoxia. Screening labs show a worsening hyponatremia. She does have a history of being on hydrochlorothiazide and I suspect that this is the source. I did briefly discussed the case with her oncologist Dr. Saunders. At that time he would recommend discontinuing the hydrochlorothiazide and having her labs repeated In a few days to ensure that it is not worsening. However subsequently repeat chest x-ray done about 90 minutes after the procedure does show a left-sided pneumothorax. Given this finding I contacted Dr. Ahumada surgeon on-call who will place a chest tube and the patient will be admitted later when a bed becomes available for further management of this pneumothorax. 2200: I personally reviewed the post chest tube line placement x-ray and I do not see any findings of residual pneumothorax. Patient has been admitted by the surgeon Dr. Daniel further care to be dictated by the surgical team Departure - Departure Disposition: 66 [facility] DC/Xfer Clinical Impression: Pleural effusion, left, Hyponatremia Pneumothorax Qualifiers: Pneumothorax type: postprocedural Qualified Code(s): J95.811 - Postprocedural pneumothorax Lung cancer Qualifiers: Laterality: unspecified laterality Lung location: unspecified part of lung Qualified Code(s): C34.90 - Malignant neoplasm of unspecified part of unspecified bronchus or lung Condition: Serious
[2021-12-20 15:19] LABS: BASOPHILS % (AUTO) 0.8 %; EOSINOPHILS % (AUTO) 0.6 %; HGB - HEMOGLOBIN 13.5 g/dL (12.0-16.0); LYMPHOCYTES % (AUTO) 20.2 %; MEAN CORPUSCULAR HEMOGLOBIN 29.2 pg (27.0-31.0); MEAN CORPUSCULAR HGB CONC 32.9 g/dL (32.0-36.0); MEAN CORPUSCULAR VOLUME 88.6 fL (81.0-99.0); MEAN PLATELET VOLUME 10.8 fL (7.9-10.8); MONOCYTES # (AUTO) 0.7 10^3/uL (0.0-1.0); MONOCYTES % (AUTO) 12.8 %; NEUTROPHILS # (AUTO) 3.3 10^3/uL (1.5-6.6); NEUTROPHILS % (AUTO) 65.2 %; PLT - PLATELET COUNT 195 10^3/uL (130-450); RED BLOOD COUNT 4.63 10^6/uL (4.20-5.40); RED CELL DISTRIBUTION WIDTH 14.9 % (12.0-15.0); WHITE BLOOD COUNT 5.1 x10^3/uL (4.8-10.8)
[2021-12-20 15:31] LABS: CALCIUM 9.2 mg/dL (8.5-10.3); CREATININE 0.7 mg/dL (0.4-1.0); POTASSIUM 3.1 mmol/L (3.5-5.0)
[2021-12-20] MEDS ORDERED: SODIUM CHLORIDE 0.9% 1,000 ML IV STA (15:40)
[2021-12-20] MEDS ORDERED: POTASSIUM CHLORIDE 20 MEQ TABLET PO STA (15:41)
--- NOTE | 2021-12-20 16:35 | XRAY Report ---
PROCEDURE: Chest 1 View X-Ray INDICATIONS: chest pain after thoracentesis TECHNIQUE: One view of the chest was acquired. COMPARISON: 12/20/2021. This film taken at 1539 hours previous film taken at 1347 hours. FINDINGS: Since the prior examination patient has developed a small to moderate sized left pneumothorax. There is continued atelectasis/consolidation at the left lung base. Right lung is clear. Heart and mediastinal contours appear within normal limits. Pulmonary vascularit y is within normal limits for low volumes. IMPRESSION: 1. Interval development of ayuvy-bo-[id number] sized left pneumothorax. 2. This report was called stat to the ER at the at 1630 hours. Reviewed by: Hansel Ruffin MD on 12/20/2021 4:34 PM PST Approved by: Hansel Ruffin MD on 12/20/2021 4:34 PM PST Station ID: [id number]
[2021-12-20] MEDS ORDERED: LIDOCAINE 1%-EPI 1:100000 10 ML MDV SUBQ STA (16:45)
[2021-12-20] MEDS ORDERED: HYDROmorphone 1 MG/ML CARPUJECT IVP STA (17:53)
[2021-12-20] MEDS ORDERED: ceFAZolin 2 GM in SODIUM CHLORIDE 0.9% 100ML 100 ML IV STA (17:54)
[2021-12-20] MEDS ORDERED: MIDAZOLAM 2 MG/2 ML VIAL IVP STA (17:54)
[2021-12-20] MEDS ORDERED: ceFAZolin 2 GM/50 ML 2 GM/50 ML BAG IV STA (18:01)
--- NOTE | 2021-12-20 18:32 | SURGERY HX AND PHYSICAL(T) ---
Surgical History & Physical - Chief Complaint/HPI Chief Complaint: left chest pain History of Present Illness: Patient was diagnosed with left lung cancer and is taking oral chemo. She developed a left pleural effusion for which she underwent a thoracentesis earlier today. She had more chest pain than expected after her procedure and presented to the ED where she was found to have a post procedure pneumothorax. For this, I am consulted. At the time of my exam, the patient complains of pain with deep inspiration only. She was satting well on RA. She states she is hungry and denies any other pain, nausea, vomiting, fevers, chills, or other systemic complaints. - PMH/PSH/Social Hx Does the pt have a hx of MRSA?: No Eyes, Ears, Nose, Throat: Glaucoma Cardiovascular: Hypertension Respiratory: Other (lung cancer (L), pleural effusion (L)) Skin: None Endocrine/Autoimmune: None Gastrointestinal: None Urinary: None Musculoskeletal: Osteoarthritis Psychiatric: None Smoking Status: Never smoker Does the pt drink ETOH?: No Frequency: Weekly Number: 1 Does the pt have substance abuse?: No - Family Hx Family Hx: Unremarkable - Home Meds and Allergies Home Medications: Latanoprost 0.005% Ophth Drops [Xalatan Ophth Drops] 1 drops OPTH QPM 11/18/14 Multivitamin [Multi-Vitamin Daily] 1 each PO 11/18/14 Allergies/Adverse Reactions: Allergies Allergy/AdvReac Type Severity Reaction Status Date / Time No Known Drug Allergies Allergy Verified 09/22/17 17:33 - Review of Systems Constitutional: Other (Complete ROS negative except for HPI, PMH.) - Vital Signs Heart Rate: 77 Blood Pressure: 155/90 Temperature: 36.7 C Respiratory Rate: 14 O2 Saturation: 100 Weight (kg): 49.895 kg Height: 1.63 m - Physical Exam General Appearance: positive: No acute distress, Alert Eyes Bilatera: positive: Normal inspection, PERRL, EOMI ENT: positive: ENT inspection nml Neck: positive: Nml inspection, Thyroid nml Respiratory: positive: Chest non-tender, No respiratory distress, Other (decreased breath sounds in L base). negative: Wheezes, Rales, Rhonchi Cardiovascular: positive: Regular rate & rhythm Peripheral Pulses: positive: 2+ Abdomen: positive: Non-tender. negative: Guarding, Rebound, Mass Back: positive: Nml inspection Extremities: positive: Non-tender Neurologic/Psychiatric: positive: Oriented x3 - Patient Review Patient Review: Problems were reviewed with the patient during this visit. Medications were reviewed with the patient during this visit. Allergies were reviewed this patient during this visit. Pertinent Tests Reviewed: All pertitent test for this patient were reviewed. - Assessment & Plan Assessment and Plan: 81 y/o F with lung cancer, s/p thoracentesis for pleural effusion earlier today, now with post procedure pneumothorax in left lateral chest. - CXR, history, PE consistent with this picture - patient is not in distress. Will give pre-procedure abx, and have offered anxiolysis and pain meds for left chest tube placement. - Plan on emergent CT placement in ED tonight. - Will give regular diet and restart home meds tonight after procedure. Limited beds available, but will work to obtain bed in hospital as soon as possible. - plan to keep CT to suction overnight, repeat CXR in AM. If PTX resolved in AM, will put CT to water seal and repeat CXR. If no recurrent PTX, will remove CT and discharge home.
[2021-12-20] MEDS ORDERED: SODIUM CHLORIDE FLUSH 0.9% 10 ML SYRINGE IVP PRN (18:47)
[2021-12-20] MEDS ORDERED: ONDANSETRON 4 MG/2 ML VIAL IVP PRN (18:47)
[2021-12-20] MEDS ORDERED: MORPHINE 2 MG/ML CARPUJECT IVP PRN (18:47)
[2021-12-20] MEDS ORDERED: ASPIRIN 325 MG TABLET PO ONE (19:55)
--- NOTE | 2021-12-20 20:23 | OPERATIVE REPORT ---
Operative Report - General Procedure Date: 12/20/21 Planned Procedure: left thoracostomy tube placement Pre-Op Diagnosis: left pneumothorax Procedure Performed: left thoracostomy tube placement Post Op Diagnosis: left pneumothorax, left pleural effusion - Procedure Note Primary Surgeon: Dr. Gayathri Daniel Anesthesia Technique: Local Pathology: none Drain/Tube Type: Other (chest tube, 12F, left lateral position) Indications: Patient had thoracentesis today, now has pneumothorax and chest pain. 30% pneumo on my review of imaging. I saw and evaluated the patient. We discussed the r/b/a of chest tube placement including bleeding, infection, damage to surrounding structures, and need for further surgery or procedures. The patient voiced udnerstanding, her questions were answered, and she wished to proceed. The patient signed a consent in her ED room. Findings: left pneumothorax Complications: none - Other Other Information/Narrative: The procedure was performed in the patient's ED room. She was given pre op antibiotics, pain medication, and anxiolysis. A pre procedure timeout was performed. She was then prepped and draped in the usual, sterile fashion. Next 15mL 1%lidocaine with epinephrine was injected into the skin, subcutaneous tissues, and chest wall where the tube would be placed. Then, an #11 scalpel was used to make a 2cm transverse incision at the 5th intercostal space. A hemostat was used to spread the subcutaneous tissues and enter the chest wall. The patient's chest wall could not accomodate a digit for finger sweep. Then a 12F chest tubewas inserted angled supperiorly and posteriorly, to 10cm. The tube was sewn into place, hooked to a [facility] chest tube system, and placed to -20cm H2O. There was a 1+ air leak. The patient tolerated the procedure well, without complication. She remained in the ED at the end of the procedure.
--- NOTE | 2021-12-20 22:38 | XRAY Report ---
PROCEDURE: Chest for Line Placement INDICATIONS: s/p left chest tube TECHNIQUE: One view of the chest was acquired. COMPARISON: Prior chest x-ray from 12/20/2021. FINDINGS: Surgical changes and devices: There is a new left chest tube with the tip extending into the medial left hemithorax in the upper lung zone. Lungs and pleura: There is a small residual left apical pneumothorax, markedly decreased compared to the prior study. There is increased pulmonary edema. Increased confluent left basilar opacities are also demonstrated consistent with atelectasis or consolidation. There is a small to moderate left ple ural effusion. Mediastinum: Mediastinal contours appear unchanged. Heart size is normal. Bones and chest wall: No suspicious bony lesions. Overlying soft tissues appear unremarkable. IMPRESSION: 1. New left pneumothorax with decrease in previously visualized left pneumothorax. There is a small r esidual apical pneumothorax. 2. Increased bony edema. 3. Increased left basilar atelectasis or consolidation with a persistent small to moderate left pleur al effusion. Reviewed by: Isaias Lauren MD on 12/20/2021 10:36 PM PST Approved by: Isaias Lauren MD on 12/20/2021 10:36 PM PST Station ID: [id number]
[2021-12-20] MEDS: ACETAMINOPHEN 325 MG TABLET PO PRN (23:07)
[2021-12-21] MEDS: MORPHINE 2 MG/ML CARPUJECT IVP PRN ×3 (00:06→12:48)
[2021-12-21] MEDS: SODIUM CHLORIDE FLUSH 0.9% 10 ML SYRINGE IVP SCH ×4 (00:06→23:45)
[2021-12-21] MEDS: ACETAMINOPHEN 325 MG TABLET PO PRN (05:10)
[2021-12-21 05:39] LABS: CREATININE 0.9 mg/dL (0.4-1.0); POTASSIUM 3.6 mmol/L (3.5-5.0)
[2021-12-21] MEDS ORDERED: HYDROmorphone 0.5 MG/0.5 ML SYRINGE IVP ONE ×2 (05:39)
[2021-12-21] MEDS ORDERED: LIDOCAINE PATCH 5% TOP PRN (05:53)
--- NOTE | 2021-12-21 07:39 | PROVIDER PROGRESS NOTE ---
Subjective - General Admit Date: 12/20/21 Procedure Date: 12/20/21 Post Op Days: 1 Procedure Performed: left thoracostomy tube placement - Review of Systems Drain Output Description: 125mL serosang fluid - Other Other Information/Narrative: Patient was doing well last night. Early this morning, she was resting and RN noted CT was disconnected. The tube was reconnected and placed to suction. Tube is tidaling but no air leak. After reconnection of the tube, the patient is having increased insertion site pain. At the time of my exam, the patient is breathing without difficulty. Her pain is improved after IV pain medication. Objective - Patient Data Vital Signs: Vital Signs x48h Temp Pulse Resp BP Pulse Ox O2 Flow Rate 12/21/21 04:19 36.8 C 73 16 116/56 L 98 3 Weight: Weight 12/19/21 12/20/21 12/21/21 23:59 23:59 23:59 Weight (kg) 49.895 kg Intake & Output: Intake and Output Totals x24h 12/19/21 12/20/21 12/21/21 23:59 23:59 23:59 Intake Total 50 Output Total 137 125 Balance -87 -125 - Lab Results Lab Results: 12/20/21 15:03 12/21/21 05:00 Other Lab Results: Lab Results x24hrs 12/21/21 12/20/21 12/20/21 Range/Units 05:00 20:10 15:03 WBC (4.8-10.8) x10^3/uL RBC (4.20-5.40) 10^6/uL Hgb (12.0-16.0) g/dL Hct (37.0-47.0) % MCV (81.0-99.0) fL MCH (27.0-31.0) pg MCHC (32.0-36.0) g/dL RDW (12.0-15.0) % Plt Count (130-450) 10^3/uL MPV (7.9-10.8) fL Neut # (Auto) (1.5-6.6) 10^3/uL Lymph # (Auto) (1.5-3.5) 10^3/uL Taliaferro # (Auto) (0.0-1.0) 10^3/uL Eos # (Auto) (0.0-0.7) 10^3/uL Baso # (Auto) (0.0-0.1) 10^3/uL Absolute Nucleated RBC x10^3/uL Nucleated RBC % /100WBC Sodium 125 L (135-145) mmol/L Potassium 3.6 (3.5-5.0) mmol/L Chloride 90 L (101-111) mmol/L Carbon Dioxide 26 (21-32) mmol/L Anion Gap 9.0 (6-13) BUN 21 H (6-20) mg/dL Creatinine 0.9 (0.4-1.0) mg/dL Estimated GFR (MDRD) 60 L (>89) Glucose 111 H (70-100) mg/dL Calcium 9.0 (8.5-10.3) mg/dL Troponin I High Sens 8.0 (2.3-14.8) ng/L SARS-CoV-2 (PCR) NOT DETECTED 12/20/21 12/20/21 Range/Units 15:03 15:03 WBC 5.1 (4.8-10.8) x10^3/uL RBC 4.63 (4.20-5.40) 10^6/uL Hgb 13.5 (12.0-16.0) g/dL Hct 41.0 (37.0-47.0) % MCV 88.6 (81.0-99.0) fL MCH 29.2 (27.0-31.0) pg MCHC 32.9 (32.0-36.0) g/dL RDW 14.9 (12.0-15.0) % Plt Count 195 (130-450) 10^3/uL MPV 10.8 (7.9-10.8) fL Neut # (Auto) 3.3 (1.5-6.6) 10^3/uL Lymph # (Auto) 1.0 L (1.5-3.5) 10^3/uL Taliaferro # (Auto) 0.7 (0.0-1.0) 10^3/uL Eos # (Auto) 0.0 (0.0-0.7) 10^3/uL Baso # (Auto) 0.0 (0.0-0.1) 10^3/uL Absolute Nucleated RBC 0.00 x10^3/uL Nucleated RBC % 0.0 /100WBC Sodium 123 L (135-145) mmol/L Potassium 3.1 L (3.5-5.0) mmol/L Chloride 91 L (101-111) mmol/L Carbon Dioxide 26 (21-32) mmol/L Anion Gap 6.0 (6-13) BUN 16 (6-20) mg/dL Creatinine 0.7 (0.4-1.0) mg/dL Estimated GFR (MDRD) 80 L (>89) Glucose 110 H (70-100) mg/dL Calcium 9.2 (8.5-10.3) mg/dL Troponin I High Sens (2.3-14.8) ng/L SARS-CoV-2 (PCR) - Current Medications Current Medications: Current Medications Generic Name Dose Route Start Last Admin Trade Name Freq PRN Reason Stop Dose Admin Acetaminophen 650 mg 12/20/21 22:43 12/21/21 05:10 Acetaminophen 325 Mg Tablet PO 650 mg Q4HR PRN Administration Mild Pain Morphine Sulfate 2 mg 12/20/21 23:57 12/21/21 04:21 Morphine 2 Mg/Ml Carpuject IVP 2 mg Q2HR PRN Administration Pain 8 to 10 Sodium Chloride 10 ml 12/21/21 01:00 12/21/21 00:06 Sodium Chloride Flush 0.9% 10 Ml Syringe IVP 10 ml 0100,0900,1700 DENEEN Administration Sodium Chloride 10 ml 12/20/21 18:47 12/21/21 04:22 Sodium Chloride Flush 0.9% 10 Ml Syringe IVP 10 ml PRN PRN Administration NEEDED PER PROVIDER ORDERS - Physical Exam Wound/Incisions: positive: Drainage (125mL serosang output from) General Appearance: positive: No acute distress, Alert Respiratory: positive: No respiratory distress, Breath sounds nml, Other (CT to water seal.) Cardiovascular: positive: Regular rate & rhythm Abdomen: positive: Non-tender, No distention Extremities: positive: Non-tender, Full ROM Neurologic/Psychiatric: positive: Oriented x3 Impression/Plan - Problem List Problem List: 81 y/o F with iatrogenic pneumothorax, s/p small bore CT placement. - tube accidentally pulled back with repositioning last night, but appears to remain in the chest on repeat CXR this AM. - I reviewed all the patient's Chest XR images and reports this AM. Most recent CXR reveals PTX is resolved on my review of images this AM. - Plan for repeat CXR at 1100. If no recurrent PTX, plan for removal of tube and likely discharge to home later today. - Plan to restart home medications today.
--- NOTE | 2021-12-21 08:41 | XRAY Report ---
PROCEDURE: Chest 1 View X-Ray INDICATIONS: pneumothorax, s/p CT placement TECHNIQUE: One view of the chest was acquired. COMPARISON: Chest x-ray 12/20/2021 FINDINGS: Surgical changes and devices: Interval left chest tube placement overlying the left lower lobe. Lungs and pleura: There is interval decrease of right pneumothorax with persistent trace apical pneu mothorax.. Consolidative opacity remains present in the left base. Mediastinum: Mediastinal contours appear normal. Heart size is normal. Bones and chest wall: No suspicious bony lesions. Overlying soft tissues demonstrate subcutaneous a nd the seen within the left chest wall. IMPRESSION: Decreased although persistent trace apical left pneumothorax now chest tube. Reviewed by: Adriana Griffin MD on 12/21/2021 8:40 AM PST Approved by: Adriana Griffin MD on 12/21/2021 8:40 AM PST Station ID: [id number]
--- NOTE | 2021-12-21 11:57 | XRAY Report ---
PROCEDURE: Chest 1 View X-Ray INDICATIONS: re eval of PTX TECHNIQUE: One view of the chest was acquired. COMPARISON: None. FINDINGS: Surgical changes and devices: Left chest tube is unchanged. Lungs and pleura: Trace left apical pneumothorax, unchanged. There is overall appearance of increase d pulmonary vascularity. Mediastinum: Mediastinal contours appear normal. Heart size is enlarged. Bones and chest wall: No suspicious bony lesions. Overlying soft tissues appear unremarkable. IMPRESSION: Trace left apical pneumothorax, unchanged. Reviewed by: Adriana Griffin MD on 12/21/2021 11:55 AM PST Approved by: Adriana Griffin MD on 12/21/2021 11:55 AM [facility] Station ID: [id number]
--- NOTE | 2021-12-21 12:20 | PHARMACY PROGRESS NOTE ---
- Best Possible Medication History Admit Date and Time: 12/20/21 1847 Processed by: Pharmacy Medication History completed: Yes Patient Interview: Completed Secondary Source(s): Pharmacy records (Pt isn't a good historian) As the person ultimately responsible for medication therapy, providers are able to order a medication from an existing home medication list in [facility] via the "Reconcile Routine" prior to Confirmation of that medication by senior support analyst. Such practice is discouraged except when the physician, in their clinical judgment, deems that a medical need exists for a medication without regard to previous use.
--- NOTE | 2021-12-21 14:55 | XRAY Report ---
PROCEDURE: Chest 1 View X-Ray INDICATIONS: timed at 1200, ptx follow up TECHNIQUE: One view of the chest was acquired. COMPARISON: None. FINDINGS: Surgical changes and devices: Left-sided chest tube is stable. Bilateral breast implants are stable. Lungs and pleura: No pleural effusions or pneumothorax. Bilateral interstitial prominence stable. Mediastinum: Mediastinal contours appear normal. Heart size is normal. Bones and chest wall: No suspicious bony lesions. Overlying soft tissues appear unremarkable. IMPRESSION: No pneumothorax. Reviewed by: Judy Guadalupe MD, PhD on 12/21/2021 2:54 PM PST Approved by: Judy Guadalupe MD, PhD on 12/21/2021 2:54 PM PST Station ID: [id number]
[2021-12-22] MEDS ORDERED: MULTIVITAMIN W/MINERALS TABLET PO SCH (08:00)
--- NOTE | 2021-12-22 08:15 | Discharge Plan ---
Discharge Plan Problem Reviewed?: Yes Disposition: Home, Self Care Condition: Stable Diet: Regular Activity Restrictions: No Restrictions Shower Restrictions: No Driving Restrictions: No Weight Bearing: Full Weight Instruction Topics: Pneumothorax, Effusion Pleural, Thoracentesis Dc Health Concerns: lung cancer Assessment: pneumothorax resolved Additional Instructions or Follow Up instructions: change dressing on left chest as needed. Keep area covered until Sat AM, then may leave open to room air. Follow-Up Care: [facility] [place] [facility] - Medical No Smoking: If you smoke, Please STOP! Call for help. Follow-up with: Abimbola Arriaza MD [Primary Care Provider] -
--- NOTE | 2021-12-22 08:18 | DISCHARGE SUMMARY ---
"Discharge Summary Admit Date: 12/20/21 Discharge Date: 12/22/21 Discharging Provider: Dr. Gayathri Daniel Primary Care Provider: Becky Code Status: Do Not Attempt Resuscitation Condition at Discharge: Stable Discharge Disposition: 01 Home, Self Care - DIAGNOSES Admission Diagnoses: iatrogenic pneumothorax, left Discharge Diagnoses with Status of Each Condition: lung cancer, stable left pleural effusion, improved left pneumothorax, resolved hyponatremia, stable - HPI History of Present Illness: Patient has left lung cancer and is taking oral chemo. She developed a left pleural effusion for which she underwent a thoracentesis earlier on the date of admission. She had more chest pain than expected after her procedure and presented to the ED where she was found to have a post procedure pneumothorax. For this, a chest tube was placed in the ED and the patient was admitted. - CONSULTS | PROCEDURES Procedures: left chest tube placement, 12/20/21 - HOSPITAL COURSE Hospital Course: The patient had a chest tube placed in the ED. Initial air leak resolved overnight and the pneuothorax did not reaccumulate with the chest tube to water seal for more than 6 hours. The chest tube was removed. The patient had a lot of discomfort at the insertion site which resolved after the tube was removed. On the date of discharge, the patient denies SOA, chest pain, pain with inspiration. Her repeat CXR this AM demonstrates only a persistent trace apical PTX on the left. She is satting well on RA. At this time, the patient is stable for discharge to home. She will continue care with her oncology, palliative care, and primary care teams. She does not need to follow up with me in clinic. - ALLERGIES Allergies/Adverse Reactions: Allergies Allergy/AdvReac Type Severity Reaction Status Date / Time No Known Drug Allergies Allergy Verified 09/22/17 17:33 - MEDICATIONS Home Medications: Ambulatory Orders Medication Instructions Recorded Confirmed Latanoprost 0.005% Ophth Drops 1 drops OPTH QPM 11/18/14 12/21/21 [Xalatan Ophth Drops] Ascorbic Acid [Vitamin C] 4,000 mg PO DAILY 12/21/21 12/21/21 Benzonatate [Tessalon] 100 mg PO TID 12/21/21 12/21/21 Calcium Carbonate [Calcium] 1,200 mg PO DAILY 12/21/21 12/21/21 Cholecalciferol [Vitamin D3] 25 mcg PO DAILY 12/21/21 12/21/21 Dorzolamide/Timolol Ophth Soln 1 drops EACHEYE BID 12/21/21 12/21/21 [Cosopt] Loperamide [Imodium] 1 cap PO QID PRN 12/21/21 12/21/21 Losartan Potassium [Cozaar] 100 mg PO DAILY 12/21/21 12/21/21 Melatonin 5 mg PO HS 12/21/21 12/21/21 ONDANSETRON ODT Prepack 2 [ZOFRAN 4 mg TL Q6H 12/21/21 12/21/21 ODT Prepack 2] Osimertinib Mesylate [Tagrisso] 1 tab PO DAILY 12/21/21 12/21/21 Vit C/E/Zn/Coppr/Lutein/Zeaxan 2 tab PO DAILY 12/21/21 12/21/21 [Preservision Areds 2 Chew Tab] hydroCHLOROthiazide [Hydrodiuril] 1 tab PO DAILY 12/21/21 12/21/21 - PHYSICAL EXAM AT DISCHARGE General Appearance: positive: No acute distress, Alert Eyes Bilateral: positive: Normal inspection, PERRL ENT: positive: Pharynx nml Neck: positive: No JVD, Trachea midline Respiratory: positive: Chest non-tender, No respiratory distress, Breath sounds nml Cardiovascular: positive: Regular rate & rhythm Peripheral Pulses: positive: 2+ Abdomen: positive: Non-tender, No distention. negative: Guarding, Rebound Skin: positive: Color nml, No rash Extremities: positive: Non-tender, Full ROM Neurologic/Psychiatric: positive: Oriented x3 - LABS Result Diagrams: 12/20/21 15:03 12/21/21 05:00 - DIAGNOSTIC IMAGING Diagnostic Imaging Results Comments: repeat CXR demonstrates only trace left apical ptx on my personal review of the image. No report is yet available. - FOLLOW UP Follow Up: PCP, oncology, palliative care teams - TIME SPENT Time Spent in Discharge (Minutes): 25"
--- NOTE | 2021-12-22 08:25 | XRAY Report ---
PROCEDURE: Chest 1 View X-Ray INDICATIONS: ptx f/u TECHNIQUE: One view of the chest was acquired. COMPARISON: 12/21/2021, 12/20/2021. FINDINGS: Surgical changes and devices: There is interval removal of previously noted left-sided chest tube.. Lungs and pleura: Small persistent left apical pneumothorax is seen not significantly changed in siz e compared to previous study. Left basilar atelectasis and small pleural effusion is likely present. Right lung is clear. Mediastinum: Mediastinal contours appear normal. Heart size is normal. Bones and chest wall: No suspicious bony lesions. Subcutaneous emphysema along left lateral chest wa ll is again seen. IMPRESSION: Interval removal of left-sided chest tube with small residual left apical pneumothorax. Small left pl eural effusion and left basilar atelectasis. Right lung remains clear. Reviewed by: Ky Burroughs MD on 12/22/2021 8:24 AM PST Approved by: Ky Burroughs MD on 12/22/2021 8:24 AM PST Station ID: [id number]
[2021-12-22] MEDS: SODIUM CHLORIDE FLUSH 0.9% 10 ML SYRINGE IVP SCH (08:26)
[2021-12-22 10:53] VITALS: BP 129/65
== END 2021-12-22 11:20 | disposition home or self-care (01) | DRG 200 ==
LOC: ED 14:33 → MS2 18:47
PROVIDERS: ADMIT Surgery; ATTEND Surgery
PROC: 0W9B30Z Drainage of Left Pleural Cavity with Drainage Device, Percutaneous Approach (ICD-10-PCS; principal; 2021-12-20)
DX: J95.811 Postprocedural pneumothorax (principal); J90 Pleural effusion, not elsewhere classified; C34.90 Malignant neoplasm of unspecified part of unspecified bronchus or lung; J91.0 Malignant pleural effusion; E87.1 Hypo-osmolality and hyponatremia; Z79.899 Other long term (current) drug therapy; R07.9 Chest pain, unspecified; Z20.822 Contact with and (suspected) exposure to COVID-19
CPT/HCPCS: 32555; 36415; 71045; 80048; 84484; 85025; 85049; 85610; 85730; 87635; 93005; 99284; 99285; A9270; J0690; J1170

== ENCOUNTER 2022-01-30 13:48 | Outpatient (CLI) | payer MEDICARE, OTHER | END 2022-01-30 13:49 | disposition EMS.NT | LOC: EMS 13:48 | DX: R41.0 Disorientation, unspecified (principal) ==